=== PATIENT | female | born 1950 | race Hispanic/Latino ===

== ENCOUNTER 2018-01-12 11:30 | Day surgery (SDC) | payer MEDICARE ==
[2018-01-06 12:28] VITALS: BMI 22.6
[2018-01-12 12:15] LABS: BASO # 0.02 K/mm3 (0.0-2.0); BASO % 0.2 % (0.0-3.0); EOS # 0.2 (0.0-0.7); EOS % 2.1 % (1.5-5.0); GRAN # 5.11 (1.4-6.5); GRAN % 62.9 % (50.0-68.0); HEMOGLOBIN 13.1 g/dL (12.0-16.0); LYMPH # 2.1 (1.2-3.4); LYMPH % 25.7 % (22.0-35.0); MEAN CELL VOLUME 90.3 fl (80.0-105.0); MEAN CORPUSCULAR HEMOGLOBIN 30.4 pg (25.0-35.0); MEAN CORPUSCULAR HGB CONC 33.7 g/dl (31.0-37.0); MEAN PLATELET VOLUME 9.7 fl (7.0-11.0); MONO # 0.7 (0.1-0.6); MONO % 9.1 % (1.0-6.0); RBC 4.31 10^6/uL (3.5-6.1); RED CELL DISTRIBUTION WIDTH 13.6 % (11.5-14.5); WHITE BLOOD COUNT 8.1 10^3/ul (4.5-11.0)
[2018-01-12 12:18] VITALS: O2SAT 97
[2018-01-12 12:20] LABS: INR 0.94; PARTIAL THROMBOPLASTIN TIME 29.5 Seconds (25.1-36.5); PROTHROMBIN TIME 10.8 SECONDS (9.4-12.5)
[2018-01-12 12:25] LABS: BLOOD UREA NITROGEN 14 mg/dL (7-21); CALCIUM 9.8 mg/dL (8.4-10.5); GFR NON-AFRICAN AMERICAN > 60
[2018-01-12] MEDS ORDERED: Iodixanol 320 MG/ML 200 ML BOTTLE IV ONE (12:40)
[2018-01-12] MEDS ORDERED: Lidocaine 2% PF (10 ml) Amp ONE (12:40)
[2018-01-12] MEDS ORDERED: Iodixanol 320 MG/ML 100 ML BOTTLE IV ONE (12:40)
[2018-01-12] MEDS ORDERED: Nitroglycerin 50mg in D5W 50 MG/250 ML BOTTLE IV ONE (12:40)
[2018-01-12] MEDS ORDERED: Midazolam 2 MG/2 ML VIAL ONE ×2 (14:22→14:55)
[2018-01-12] MEDS ORDERED: Oxycodone/Acetaminophen 5/325 mg Tab PO PRN (15:43)
[2018-01-12] MEDS ORDERED: Sodium Chloride 0.45% 1,000 ML IV SCH (15:45)
[2018-01-12] MEDS ORDERED: Morphine 4 mg/ml ISec ONE (16:44)
[2018-01-12 16:45] VITALS: RESP 20; TEMP 97.9
[2018-01-12] MEDS ORDERED: Morphine 2 mg/ml ISec IVP STA (16:45)
[2018-01-12 17:45] VITALS: BP 131/78; PULSE 82
--- NOTE | 2018-01-12 18:38 | VASCULAR ---
PROCEDURE: 1. Abdominal aortogram and bilateral lower extremity runoff with right selective views. 2. Multilevel right SFA and popliteal artery silver Hawk atherectomy and drug-eluting balloon angioplasty HISTORY: Smoker. Severe peripheral vascular disease. Previous complex right SFA intervention in 2013. Stent restenosis on recent ultrasound. Bilateral claudication, greater on the left than the right. PHYSICIAN(S): David Johnson M.D. TECHNIQUE: The relative risks and indications of the procedure were explained to the patient and consent obtained. The patient was hydrated prior to the procedure and the appropriate labs drawn. The patient was placed supine on the arteriogram table and the left groin prepped and draped in the usual sterile fashion. Conscious sedation and monitoring were provided throughout the procedure by a nurse. Under ultrasound guidance, the left common femoral artery was punctured and a 5 [place] sheath placed. Through the sheath over a guidewire a 5 [place] flush catheter was placed in the abdominal aorta at the level renal arteries and a PA DSA abdominal pelvic arteriogram performed. The catheter was pulled down the aortic bifurcation and bilateral oblique pelvic arteriograms performed. Overlapping bilateral lower extremity DSA arteriograms were obtained from the inguinal ligaments to the ankles. A 0.035 support wire was advanced over the bifurcation placed the right SF A 7 [place] 45 cm sheath was placed in the right external iliac artery. The multi focal stenoses in the right SFA and popliteal arteries were easily crossed with 5 [place] catheter and angled Glidewire. Exchange is made for 0.014 support wire. Heparin and nitroglycerin were given. Silver Hawk atherectomy and drug-eluting balloon angioplasty was performed in the right SFA at 3 levels. The focal lesion at the ostium was treated with an LS catheter and a 7 mm drug-eluting balloon. The multi focal stenoses in the mid right SFA were treated with the LS catheter and 7 mm drug-eluting balloon. The aunt stent restenosis in the right popliteal artery above the knee was treated with the LS catheter and a 6 mm drug-eluting balloon. The sheath was removed hemostasis obtained with a Perclose device. The patient tolerated the procedure well. FINDINGS: There are single renal arteries bilaterally which are widely patent and normal in appearance. The nephrograms are symmetric in appearance. The infrarenal abdominal aorta is ectatic and irregular in appearance. The aortic bifurcation is patent. The common and external iliac arteries are smoothly diseased and small in caliber without radiographically significant stenosis. The right internal iliac artery has a 70 percent stenosis at its origin. The left internal iliac artery is patent.. The aortic bifurcation is widely patent. The common and external iliac arteries are normal in appearance without a significant stenosis. The internal iliac arteries are patent bilaterally. Right lower extremity: The right common femoral artery is patent. There is an 80 percent focal stenosis at the origin of the right SFA. A via Bon stent graft is present in the proximal right SFA. Multi focal moderate to severe stenoses are seen in the mid right SFA which is not stented. There is a Supera stent noted in the distal right SFA and above knee popliteal artery. Significant restenosis is noted in the distal stent above the knee. The right popliteal artery is patent and continuous. There is 2 vessel runoff via the right anterior tibial and peroneal arteries. The right posterior tibial artery occludes proximally. Left lower extremity: Left common femoral artery is patent. There is a long segment occlusion at the origin left SF The left profunda femoral artery is markedly hypertrophied. There is reconstitution of a moderately diseased left popliteal artery. The left popliteal artery is continuous. There is 2 vessel runoff via the left anterior tibial and peroneal arteries. Left posterior tibial artery is occluded. IMPRESSION: 1.Successful treatment of multifocal disease in the right SFA utilizing silver Hawk atherectomy and drug-eluting balloon angioplasty as described above. 2. Long segment left SFA occlusion. 3. Moderate bilateral tibial occlusive disease as described above.
== END 2018-01-12 18:45 | disposition home or self-care (01) ==
LOC: SDSVAS 11:30
PROVIDERS: ATTEND Radiology Vascular & Interventional Radiology
DX: I70.213 Atherosclerosis of native arteries of extremities with intermittent claudication, bilateral legs (principal); I70.202 Unspecified atherosclerosis of native arteries of extremities, left leg; I10 Essential (primary) hypertension; F17.200 Nicotine dependence, unspecified, uncomplicated; M19.90 Unspecified osteoarthritis, unspecified site; Z95.820 Peripheral vascular angioplasty status with implants and grafts; Z90.49 Acquired absence of other specified parts of digestive tract

== ENCOUNTER 2018-03-03 10:43 | Day surgery (SDC) | payer MEDICARE ==
[2018-01-06 12:28] VITALS: BMI 22.6
[2018-03-03 11:18] LABS: BASO # 0.02 K/mm3 (0.0-2.0); BASO % 0.2 % (0.0-3.0); EOS # 0.1 (0.0-0.7); EOS % 1.7 % (1.5-5.0); GRAN # 5.02 (1.4-6.5); GRAN % 59.3 % (50.0-68.0); HEMOGLOBIN 12.8 g/dL (12.0-16.0); LYMPH # 2.7 (1.2-3.4); LYMPH % 32.2 % (22.0-35.0); MEAN CELL VOLUME 90.3 fl (80.0-105.0); MEAN CORPUSCULAR HEMOGLOBIN 29.5 pg (25.0-35.0); MEAN CORPUSCULAR HGB CONC 32.7 g/dl (31.0-37.0); MEAN PLATELET VOLUME 9.5 fl (7.0-11.0); MONO # 0.6 (0.1-0.6); MONO % 6.6 % (1.0-6.0); RBC 4.34 10^6/uL (3.5-6.1); RED CELL DISTRIBUTION WIDTH 13.4 % (11.5-14.5); WHITE BLOOD COUNT 8.5 10^3/uL (4.5-11.0)
[2018-03-03] MEDS ORDERED: Lidocaine 2% Inj (20ml) ONE (11:21)
[2018-03-03] MEDS ORDERED: Iodixanol 320 mg/ml 150 ml Bottle IV ONE (11:22)
[2018-03-03] MEDS ORDERED: Iodixanol 320 MG/ML 200 ML BOTTLE IV ONE (11:22)
[2018-03-03] MEDS ORDERED: Nitroglycerin 50mg in D5W 50 MG/250 ML BOTTLE IV ONE (11:22)
[2018-03-03 11:27] LABS: BLOOD UREA NITROGEN 19 mg/dL (7-21); CALCIUM 9.7 mg/dL (8.4-10.5); GFR NON-AFRICAN AMERICAN > 60
[2018-03-03 11:33] LABS: INR 0.97; PARTIAL THROMBOPLASTIN TIME 28.9 Seconds (25.1-36.5); PROTHROMBIN TIME 11.1 SECONDS (9.4-12.5)
[2018-03-03] MEDS ORDERED: Midazolam 2 MG/2 ML VIAL ONE ×2 (13:06→13:23)
[2018-03-03] MEDS ORDERED: Oxycodone/Acetaminophen 5/325 mg Tab PO PRN (14:24)
[2018-03-03] MEDS ORDERED: Sodium Chloride 0.45% 1,000 ML IV SCH (14:30)
[2018-03-03] MEDS ORDERED: Morphine 2 mg/ml ISec IVP PRN (14:47)
[2018-03-03] MEDS ORDERED: Morphine 4 mg/ml ISec ONE (15:19)
[2018-03-03] MEDS ORDERED: Morphine 2 mg/ml ISec IVP ONE (15:23)
[2018-03-03 15:24] VITALS: RESP 18; TEMP 97.8
[2018-03-03 17:22] VITALS: O2SAT 97
--- NOTE | 2018-03-03 17:41 | VASCULAR ---
Date of service: 03/03/2018 PROCEDURE: 1. Abdominal aortogram bilateral lower extremity runoff with left selective views. 2. Unsuccessful attempt at left SFA recanalization. HISTORY: Severe peripheral vascular disease. Recent right SFA intervention. Lifestyle limiting left lower extremity claudication with left SFA occlusion. PHYSICIAN(S): David Johnson M.D. TECHNIQUE: The relative risks and indications of the procedure were explained to the patient and consent obtained. The patient was hydrated prior to the procedure and the appropriate labs drawn. The patient was placed supine on the arteriogram table and the right groin prepped and draped in the usual sterile fashion. Conscious sedation and monitoring were provided throughout the procedure by a nurse. Under ultrasound guidance, the right common femoral artery was punctured with a micropuncture set. A 5 [place] sheath was placed. Through the sheath over guidewire a 5 [place] flush catheter was placed the abdominal aorta just above the bifurcation and bilateral oblique abdominal pelvic arteriograms performed. Overlapping bilateral lower extremity DSA arteriograms were obtained from the inguinal ligaments to the ankles. A 7 [place] 45 cm sheath was placed in the left common femoral artery. The stump of the occluded left SFA was engaged easily with a 5 [place] catheter. Multiple attempts at crossing the long segment left SFA occlusion were unsuccessful. These attempts included a Wildcat catheter and an out back re-entry catheter. After numerous attempts, the procedure was terminated. The sheath was removed hemostasis obtained with a Perclose device. The patient tolerated the procedure FINDINGS: The distal abdominal aorta is calcified patent. Aortic bifurcation is patent. The iliac arteries are calcified and small in caliber but patent without radiographically significant stenosis. The common external iliac arteries are smoothly diseased and patent. The internal iliac arteries are patent bilaterally. Right lower extremity: The right common femoral artery is patent. The right profunda femoral artery is patent. The recently treated right SFA is widely patent with brisk flow. No evidence of subacute restenosis is seen. The distal right SFA stents are patent. The right popliteal artery is patent. The right trifurcation is intact. The right anterior tibial and peroneal arteries extend to the ankle. The right posterior tibial artery occludes its mid segment. Left lower extremity: Left common femoral artery is patent. The left profunda femoral artery is hypertrophied. There is a long segment occlusion of the left SFA at its origin. There is reconstitution of the left popliteal artery and adductor canal. The left popliteal artery is continuous. The left trifurcation demonstrates 2 vessel runoff via the anterior tibial and peroneal arteries. Left posterior tibial artery is atretic. IMPRESSION: 1.Unsuccessful attempt at recannulize in long segment left SFA occlusion 2. Moderate bilateral tibial occlusive disease 3. Widely patent right SFA intervention.
[2018-03-03 18:05] VITALS: BP 103/62; PULSE 72
== END 2018-03-03 18:45 | disposition home or self-care (01) ==
LOC: SDSVAS 10:43
PROVIDERS: ATTEND Radiology Vascular & Interventional Radiology
DX: I70.212 Atherosclerosis of native arteries of extremities with intermittent claudication, left leg (principal); I10 Essential (primary) hypertension
CPT/HCPCS: 36247; 36415; 75716; 80048; 85025; 85610; 85730; 99152; C1725 ×2; C1760 ×2; C1769 ×5; C1885; C1887 ×4; C1894; J1644 ×2; J2250; J2270 ×2; J2405; J3010; J7030; Q9966; Q9967